=== PATIENT | female | born 2000 | race Caucasian/White ===

== ENCOUNTER 2022-07-15 14:58 | Outpatient (CLI) | payer OTHER | END 2022-07-15 14:59 | disposition home or self-care (01) | LOC: BICULT 14:58 | PROVIDERS: ATTEND Internal Medicine Endocrinology, Diabetes & Metabolism | DX: R22.1 Localized swelling, mass and lump, neck (principal); E03.9 Hypothyroidism, unspecified; E01.0 Iodine-deficiency related diffuse (endemic) goiter | CPT/HCPCS: 76536 ==

== ENCOUNTER 2025-05-14 17:58 | Emergency (ER) | payer OTHER ==
[2025-05-14] MEDS ORDERED: Ibuprofen 200 MG TAB ONE (20:23)
== END 2025-05-14 21:55 | disposition home or self-care (01) ==
LOC: ERS 17:58
DX: S03.01XA Dislocation of jaw, right side, initial encounter (principal); E03.9 Hypothyroidism, unspecified; Z79.890 Hormone replacement therapy; X58.XXXA Exposure to other specified factors, initial encounter